=== PATIENT | male | born 1985 | race Caucasian/White ===

== ENCOUNTER 2019-11-29 12:33 | Emergency (ER) | payer BC, SELFPAY ==
[2019-11-29 12:40] VITALS: BP 132/88; PULSE 79; RESP 18; TEMP 36.7; O2SAT 98; BMI 22.6
[2019-11-29 14:22] LABS: Coronavirus 19 IgG Antibody Positive (Negative)
[2019-11-29 14:23] LABS: Coronavirus 19 IgM Antibody Positive (Negative)
--- NOTE | 2019-11-29 14:57 | HMH.EDHA ---
ED Disposition Clinical Impression: Headache Disposition: Home, Self-Care Condition on Discharge: Good Instructions: DI for Headache Additional Instructions: Your antibody test came back positive for both IgG and IgM which means you have been still an acute infection but you are developing antibodies for immunity. Please self quarantine for the next 14 days. Referrals: Provider,Referral, [Primary Care Provider] - - Critical Care Critical Care Time: No Attestation: On 11/29/19, the high probability of a clinically significant, sudden or life threatening deterioration of the following system(s) required my full and direct attention, intervention and personal management. The time I documented below is in addition to time spent performing reported procedures but includes the following listed in this critical care notation. Medical Decision Making - Medical Records Medical records reviewed: Yes: I reviewed the patient's medical records. - [place] Inquiry Pt receiving controlled substance: No Vital Signs: 11/29/19 12:40 Temperature 98.1 F Temperature Source Oral Pulse Rate [Right Radial] 79 Respiratory Rate 18 Blood Pressure [Right Arm] 132/88 Blood Pressure Mean [Right Arm] 102 Blood Pressure Source [Right Arm] Manual Cuff/ Doppler Blood Pressure Position [Right Arm] Sitting 02 Sat by Pulse Oximetry 98 Oxygen Delivery Method Room Air - Lab Data Lab results reviewed: Yes: I reviewed the patient's lab results. Lab Results 11/29/19 13:45: SARS-CoV-2 IgG Ab (Rapid) Positive A, SARS-CoV-2 IgM Ab (Rapid) Positive A Orders (Tests/Meds): ED MEDICATIONS Discontinued Medications Generic Name Dose Route Start Last Admin Trade Name Freq PRN Reason Stop Dose Admin Diphenhydramine HCl 25 mg 11/29/19 13:23 11/29/19 13:49 Benadryl 50mg/1ml Vial IM 11/29/19 13:24 Not Given ONCE ONE Diphenhydramine HCl 25 mg 11/29/19 13:34 11/29/19 13:48 Benadryl 25mg Capsule PO 11/29/19 13:35 25 mg ONCE ONE Administration Ketorolac Tromethamine 60 mg 11/29/19 13:22 11/29/19 13:44 Toradol 60mg/2ml Vial IM 11/29/19 13:23 60 mg ONCE ONE Administration Ondansetron HCl 4 mg 11/29/19 13:22 11/29/19 13:48 Zofran 4mg Odt SL 11/29/19 13:23 4 mg ONCE ONE Administration Orphenadrine Citrate 60 mg 11/29/19 13:22 11/29/19 13:48 Norflex 60mg/2ml Vial IM 11/29/19 13:23 60 mg ONCE ONE Administration Medical Decision Narrative: Patient improved after medications. Headache HPI - General Chief Complaint: Headache Stated Complaint: blur vison jerry maldonado Time Seen by Provider: 11/29/19 14:57 Mode of Arrival: Ambulatory Source of Information: Patient Limitations: No Limitations Description of Symptoms (Recalled from ER Triage Doc. by RN): PT STATES THAT HE WAS DX WITH COVID-19 APPROX 1 MONTH AGO AND ISN'T DUE TO RETEST UNTIL 12/02. PT STATES THAT FOR THE LAST WEEK HE HAS BEEN EXPERIENCING INTERMITTENT MIGRAINES AND NAUSEA - History of Present Illness MD Complaint: headache Onset (ago): hour(s) Onset description: sudden Location: right Severity: mild Severity scale (1-10): 3 Quality: aching Relieving factors: nothing Exacerbating factors: none Context: occurred at rest, other (Patient tested for COVID 2 weeks ago we ran an antibiotic test on him here today and it came back positive for IgG and IgM.) Treatments prior to arrival: none - Related Data Allergies Allergy/AdvReac Type Severity Reaction Status Date / Time No Known Allergies Allergy Verified 11/29/19 13:22 [facility] History - Hepatitis A Screen Drug use history?: No High risk sexual behaviors?: No History of sexually transmitted infection?: No Currently employed?: No Childcare worker?: No Do you have indoor plumbing?: Yes Do you have electricity?: Yes Attestation statement:: This patient has been screened for Hepatitis A risk factors. I have reviewed the patient's past medical history: Yes
[2019-11-29 15:07] VITALS: BP 130/81; PULSE 76; RESP 18; TEMP 36.7; O2SAT 97
== END 2019-11-29 15:13 | disposition home or self-care (01) ==
PROVIDERS: Emergency Provider Family Medicine
DX: R51 Headache (principal); R11.0 Nausea
CPT/HCPCS: 86328; 96372; 99281; 99282

== ENCOUNTER 2024-06-01 12:27 | Emergency (ER) | payer BC, SELFPAY ==
[2024-06-01 12:28] VITALS: BP 144/76; PULSE 100; RESP 20; TEMP 37.2; O2SAT 100; BMI 26.5
--- NOTE | 2024-06-01 12:54 | ECG_ITS ---
APPROVED REPORT Exam: Resting ECG HR:94 bpm ECG Measurements Heart Rate 94 AXES UT 173 P 43 QRSd 92 QRS 67 QT 315 T 53 QTc 367 Conclusion SINUS RHYTHM NORMAL ECG UNCONFIRMED REPORT Electronically signed by : Joel Tee, 06/02/2024 15:31:55
[2024-06-01 13:00] VITALS: BP 144/79
[2024-06-01 13:06] LABS: Coronavirus 19, PCR Not Detected (NotDetected); Influenza B, PCR Not Detected (NotDetected); Microscopic, Urine URINE MICROSCOPIC (MICROSCOPIC)
[2024-06-01 13:12] LABS: Appearance,Urine CLEAR (Clear); Bilirubin,Urine Negative (Negative); Blood, Urine Negative (Negative); Color,Urine YELLOW (Yellow); Glucose,Urine (UA) 3+ (Negative); Ketones,Urine Negative (Negative); Leukocyte Esterase,Urine Negative (Negative); Nitrate,Urine Negative (Negative); PH,Urine 6.5 (5.0-8.5); Protein,Urine TRACE (Negative)
[2024-06-01 13:13] LABS: Basophils # 0.1 K/mm3 (0-0.2); Basophils % 0.8 % (0.1-2.0); Eosinophils # 0.1 K/mm3 (0.0-0.4); Eosinophils % 0.9 % (0.1-12.0); Hematocrit 44.2 % (42.0-52.0); Hemoglobin 15.4 g/dL (14.1-18.0); Lymphocytes # 0.5 K/mm3 (0.7-4.5); Lymphocytes % 6.6 % (10-50); Mean Corpuscular HGB Conc 34.8 g/dL (31.8-35.4); Mean Corpuscular Hemoglobin 29.6 pg (27.0-31.2); Mean Corpuscular Volume 84.8 fl (80-94); Mean Platelet Volume 9.2 fl (7.4-10.4); Monocytes # 0.9 K/mm3 (0.1-1.0); Monocytes % 11.6 % (1.7-9.3); Neutrophils # 6.2 K/mm3 (1.8-7.8); Neutrophils % 79.7 % (37.0-80.0); Platelet Count 227 K/mm3 (142-424); Red Blood Count 5.21 M/mm3 (4.60-6.20); Red Cell Distribution Width 12.9 % (11.5-17.5); White Blood Count 7.8 K/mm3 (4.8-10.8)
[2024-06-01 13:20] LABS: Bacteria,Urine Trace /lpf; Squamous Epithelial Cell,Urine Occasional #/hpf (0-5); WBC,Urine Occasional #/hpf (0-3)
[2024-06-01 13:21] LABS: Albumin Level 4.5 g/dl (3.5-5.0); Chloride 98 mmol/L (98-107); Potassium 3.6 mmoL/L (3.5-5.1); Sodium 132 mmol/L (136-145)
[2024-06-01 13:24] LABS: Alanine Aminotransferase 38 U/L (12-78); Albumin/Globulin Ratio 1.5 (1.1-1.8); Alkaline Phosphatase 88 U/L (38-126); Anion Gap 9.6 mEq/L (5-15); Aspartate Amino Transferase 37 U/L (17-59); Bilirubin,Total 1.4 mg/dl (0.2-1.3); Blood Urea Nitrogen 15 mg/dl (9-20); Calcium 9.1 mg/dl (8.4-10.2); Carbon Dioxide 28 mmol/L (22.0-30.0); Creatinine Clearance Estimated 89 mL/min (50-200); Estimated Glomerular Filt Rate 76 ml/min (>60); GFR (African American) 92 ML/MIN (>60); Glucose 170 mg/dl (74-100); Lipase 62 U/L (23-300); Total Protein,Serum 7.5 g/dl (6.3-8.2)
[2024-06-01] MEDS: 0.9 % SODIUM CHLORIDE 1000ML 1,000 ML 999 ML IV (13:26)
[2024-06-01] MEDS: ONDANSETRON 4MG/2ML VIAL 4 MG IV (13:27)
[2024-06-01 13:30] VITALS: BP 134/72
[2024-06-01 13:36] LABS: Influenza A, PCR Detected (NotDetected)
--- NOTE | 2024-06-01 13:55 | XR_ITS ---
PROCEDURE INFORMATION: Exam: XR Chest Exam date and time: 06/01/2024 1:49 PM Age: 38 years old Clinical indication: Cough and shortness of breath; Additional info: Flu, cough TECHNIQUE: Imaging protocol: Radiologic exam of the chest. Views: 2 views. COMPARISON: No relevant prior studies available. FINDINGS: Lungs: Unremarkable. No consolidation. Pleural spaces: Unremarkable. No pleural effusion. No pneumothorax. Heart/Mediastinum: Unremarkable. No cardiomegaly. Bones/joints: Unremarkable. IMPRESSION: No acute findings.
[2024-06-01] MEDS: IBUPROFEN 600 MG TABLET PO (14:05)
[2024-06-01 14:30] VITALS: BP 138/71; PULSE 89; O2SAT 97
[2024-06-01 15:08] LABS: Troponin I < 0.01 ng/ml (0.00-0.034)
[2024-06-01 15:31] VITALS: BP 135/79; PULSE 80; RESP 20; TEMP 36.8; O2SAT 98
--- NOTE | 2024-06-01 17:46 | ED_ITS ---
<Statement entered by Mauro Tee MD - 06/02/24 15:28> I was consulted by the MAG, and we discussed the complexity of the problems being addressed. I approved the treatment and management plan for this patient's care in the emergency department, thus performing a substantive portion of the medical decision making. Mauro Tee MD, ZAIRE, FACEP Discharge Plan Disposition Patient Disposition: Home, Self-Care Condition: Good Prescriptions Prescriptions: New ondansetron 4 mg tablet,disintegrating 4 mg PO Q8H PRN (Reason: nausea and vomiting) 3 Days Qty: 9 0RF Referrals Follow up/Referrals: Tesha Munguia APRN [Primary Care Provider] - See instructions Activity Restrictions/Add. Instructions Additional Instructions/Restrictions: You were seen for influenza A. Please drink fluids and rest. Return to the ER if you are unable to hold anything down or have change in mental status. Follow up with your PCP tomorrow. Clinical Impressions Clinical Impression: Influenza A Stand Alone Forms Stand Alone Forms: Work/School Release Instructions Patient Instructions: DI for Influenza -- Adult Print Language Print Language: Kittitian Discharge ED Provider: Mauro Tee General Adult HPI General Chief complaint: Nausea/Vomiting/Diarrhea Stated complaint: nausea, vomiting, passed out Time Seen by Provider: 06/01/24 12:43 Mode of Arrival: Ambulatory Source of Information: Patient and Relative Limitations: No Limitations Description of Symptoms (Recalled from ER Triage Doc. by RN): pt has been feeling sick since yesteray and began having nasuea and vomiting today and passed out in bathroom after a vomiting episode, pt denies head injury History of Present Illness HPI narrative: Patient presents with feeling unwell for the past 2 days. He has had a cough, fever, Tmax 101. He has had some nausea and vomiting this morning. While kneeling in the he did experience a syncopal episode which lasted for approximately 10 seconds. Denies any significant confusion afterwards, denies any injury. complaint: Vomiting, fever, syncope Onset (ago): day(s) (2) Radiation: non-radiation Severity: moderate Consistency: constant Relieving factors: none Exacerbating factors: none Associated symptoms: cough, fever/chills and nausea/vomiting Related Data Previous Rx's ?Medication ?Instructions ?Recorded ondansetron 4 mg disintegrating 4 mg PO Q8H PRN nausea and 06/01/24 tablet vomiting 3 days #9 tabs Allergies Allergy/AdvReac Type Severity Reaction Status Date / Time No Known Allergies Allergy Verified 11/29/19 13:22 [facility] Disclaimer: The information contained in this section may have been updated after the patient was seen, as this information can be updated by other users. Social History Smoking Status: Current every day smoker tobacco type: cigarettes alcohol intake: never current occupational status: employed Travel in the last 8 weeks: None Have you lived/traveled outside [place] in past 30 days?: No Contact w/someone who lives/traveled outside US past 30 days?: No Exposure to someone with infectious disease in past 14 days?: No Do you have a fever (greater than 100.4 F or 38 C)?: No Have you tested positive for COVID-19: No Exposed to someone with COVID-19 in past 14 days?: No Do you have a sore throat?: No Do you have a cough?: No Do you have any weakness?: No Do you have any diarrhea?: No Are you experiencing any unusual bleeding?: No Do you have any muscle aches/pain?: No Do you have any abdominal pain?: No Are you experiencing loss of taste or smell?: No Other Medical History Have you received the Flu Vaccine for this season: Yes Have you received the Pneumonia Vaccine: Yes ROS Obtained: Yes Systems reviewed as appropriate & no additional complaints except as documented Physical Exam General General appearance: alert and in no apparent distress Head Head exam: atraumatic and normocephalic Eye Eye exam: Present normal appearance and EOMI Chest Chest inspection: Present symmetric chest wall rise Respiratory Respiratory exam: Present normal lung sounds bilaterally; Absent wheezes or stridor Cardiovascular Cardiovascular exam: Present regular rate and normal rhythm; Absent systolic murmur Abdominal Exam Abdominal exam: Present soft, distention and tenderness (mild generalized tenderness ) Extremities Exam Extremities exam: Present full ROM Neurological Exam Neurological exam: Present alert and oriented X3 Psychiatric Psychiatric exam: Present normal affect and normal mood Skin Skin exam: Present warm, dry and intact Medical Decision Making Medical Records Screening: Per USPSTF and CDC recommendations, given the prevalence of disease in our region, it is our hospital?s policy to screen for HIV and viral Hepatitis for all patients aged 18 and over and those with ongoing risk factors. [place] Inquiry Pt receiving controlled substance: No Vital Signs: 06/01/24 12:28 06/01/24 13:00 06/01/24 13:30 Temperature 98.9 F Temperature Source Oral Pulse Rate Pulse Rate [Right Radial] 100 H Respiratory Rate 20 Blood Pressure 144/79 H 134/72 Blood Pressure [Right Arm] 144/76 H Blood Pressure Mean 96 88 Blood Pressure Mean [Right Arm] 98 02 Sat by Pulse Oximetry 100 Oxygen Delivery Method Room Air Room Air Room Air 06/01/24 14:30 06/01/24 15:31 Temperature 98.2 F Temperature Source Pulse Rate 89 80 Pulse Rate [Right Radial] Respiratory Rate 20 Blood Pressure 138/71 135/79 Blood Pressure [Right Arm] Blood Pressure Mean Blood Pressure Mean [Right Arm] 02 Sat by Pulse Oximetry 97 Oxygen Delivery Method Room Air Room Air Lab Data Lab Results 06/01/24 12:50: Urine Color Yellow, Urine Appearance Clear, Urine pH 6.5, Ur Specific Ronald 1.020, Urine Protein Trace, Urine Glucose (UA) 3+, Urine Ketones Negative, Urine Blood Negative, Urine Nitrate Negative, Urine Bilirubin Negative, Urine Urobilinogen 2.0, Ur Leukocyte Esterase Negative, Urine RBC None, Urine WBC Occasional, Ur Squamous Epith Cells Occasional, Urine Bacteria Trace, SARS-CoV-2 (PCR) Not detected, Influenza A Untype (PCR) Detected A, Influenza Type B (PCR) Not detected 06/01/24 13:00: WBC 7.8, RBC 5.21, Hgb 15.4, Hct 44.2, MCV 84.8, MCH 29.6, MCHC 34.8, RDW 12.9, Plt Count 227, MPV 9.2, Neut % (Auto) 79.7, Lymph % (Auto) 6.6 L , [place] % (Auto) 11.6 H, Eos % (Auto) 0.9, Baso % (Auto) 0.8, Neut # (Auto) 6.2, Lymph # (Auto) 0.5 L, [place] # (Auto) 0.9, Eos # (Auto) 0.1, Baso # (Auto) 0.1, S odium 132 L, Potassium 3.6, Chloride 98, Carbon Dioxide 28, Anion Gap 9.6, BUN 15, Creatinine 1.10, Estimated Creat Clear 89, Estimated GFR 76, Est GFR ( Amer) 92, Glucose 170 H, Hemoglobin A1c 5.0, Calcium 9.1, Magnesium 2.0, Total Bilirubin 1.4 H, AST 37, ALT 38, Alkaline Phosphatase 88, Troponin I < 0.01, Total Protein 7.5, Albumin 4.5, Globulin 3.0, Albumin/Globulin Ratio 1.5, Lipase 62 06/01/24 13:00 06/01/24 13:00 Orders (Tests/Meds): ED MEDICATIONS Discontinued Medications Generic Name Dose Route Start Last Admin Trade Name Freq PRN Reason Stop Dose Admin Sodium Chloride 1,000 mls @ 999 mls/hr 06/01/24 12:50 06/01/24 13:26 Sod Chlor 0.9% 1000ml Bag IV 06/01/24 13:50 999 mls/hr .Q1H1M ONE Administration Ibuprofen 600 mg 06/01/24 13:55 06/01/24 14:05 Ibuprofen 600 Mg Tablet PO 06/01/24 13:56 600 mg ONCE ONE Administration Ondansetron HCl 4 mg 06/01/24 12:53 06/01/24 13:27 Ondansetron 4mg/2ml Vial IV 06/01/24 12:54 4 mg ONCE ONE Administration ORDERS Category Date Time Status Chest XR 2 view (NOT portable) [XR chest 2V] Stat Exams 06/01/24 13:55 Completed Complete Blood Count Auto Diff Stat Lab 06/01/24 13:00 Completed Comprehensive Metabolic Panel Stat Lab 06/01/24 13:00 Completed Hemoglobin A1C Stat Lab 06/01/24 13:00 Completed Lipase Stat Lab 06/01/24 13:00 Completed Magnesium Stat Lab 06/01/24 13:00 Completed Rapid PCR Covid and Flu A/B Stat Lab 06/01/24 12:50 Completed Troponin I Stat Lab 06/01/24 13:00 Completed Urinalysis and Microscopic Stat Lab 06/01/24 12:50 Completed ECG Request Stat Y 06/01/24 12:50 Ordered Medical Decision Narrative: In summary patient is a 38-year-old who presents the emergency department for evaluation of fever, vomiting, syncope. Patient is hemodynamically stable upon arrival, afebrile. Mild generalized abdominal tenderness. Differential diagnosis includes viral syndrome including influenza, dehydration, pneumonia, arrhythmia. Initial workup will be conducted with labs, EKG, chest x-ray, troponin. Initial inventions include IV fluid bolus, Zofran, ibuprofen. Initial workup reviewed by me slight hyponatremi, influenza A positive. Upon repeat evaluation patient had improvement of symptoms . Given this patient is appropriate for discharge at this time with prescription for Zofran. Follow-up if not improved. Critical Care Critical Care Time Critical Care Time: No
== END 2024-06-01 15:32 | disposition home or self-care (01) ==
PROVIDERS: Physician Assistant; Emergency Provider Student in an Organized Health Care Education/Training Program; PCP Nurse Practitioner Family
DX: J10.1 Influenza due to other identified influenza virus with other respiratory manifestations (principal); R11.2 Nausea with vomiting, unspecified; R55 Syncope and collapse; R05.9 Cough, unspecified; R50.9 Fever, unspecified; Z72.0 Tobacco use
CPT/HCPCS: 71046; 80053; 81001; 83036; 83690; 83735; 84484; 85025; 87636; 93005; 96361; 96374; 99284; J2405; J7030

== ENCOUNTER 2024-08-20 06:34 | Outpatient (CLI) | payer BC, SELFPAY ==
--- NOTE | 2024-08-20 06:54 | CT_ITS ---
FINAL REPORT TECHNIQUE: Thin section axial CT with coronal reconstruction without IV contrast This study was performed with techniques to keep radiation doses as low as reasonably achievable, (ALARA). Individualized dose reduction techniques using automated exposure control or adjustment of mA and/or kV according to the patient''s size were employed. CLINICAL HISTORY: Frequent nose bleeds COMPARISON: None FINDINGS: CT SINUS: CT examination of the sinuses demonstrates mucosal thickening in the maxillary and ethmoid sinuses bilaterally. This mucosal thickening measures up to 4 mm in size. There is an air-fluid level in the right maxillary sinus consistent with acute sinusitis. There is a mucous retention cyst measuring 18 mm in size in the inferior left maxillary sinus. There is partial obstruction of the ostiomeatal units bilaterally, greater on the right than on the left, that may be secondary to mucosal thickening and/or mucous retention cysts. There is septal deviation to the right of 5 mm. No obvious nasal cavity masses identified. IMPRESSION: Acute right maxillary sinusitis. Chronic mucosal thickening of the maxillary and ethmoid sinuses bilaterally. Partial obstruction of the ostiomeatal units bilaterally, greater on the right than on the left. Reviewed, Interpreted and Dictated by Damir Easley MD Transcribed by Micaela Narayan Authenticated and [facility]
== END 2024-08-20 23:59 | disposition home or self-care (01) ==
PROVIDERS: PCP Nurse Practitioner Family; Visit Provider Nurse Practitioner
DX: R04.0 Epistaxis (principal)
CPT/HCPCS: 70486

== ENCOUNTER 2025-02-18 08:44 | Emergency (ER) | payer BC, SELFPAY ==
[2025-02-18 08:44] VITALS: BP 148/94; PULSE 68; RESP 16; TEMP 36.8; O2SAT 100; BMI 21.9
[2025-02-18 08:47] VITALS: BP 148/94; O2SAT 98
--- NOTE | 2025-02-18 08:55 | CT_ITS ---
FINAL REPORT TECHNIQUE: IV contrast enhanced exam This study was performed with techniques to keep radiation doses as low as reasonably achievable, (ALARA). Individualized dose reduction techniques using automated exposure control or adjustment of mA and/or kV according to the patient''s size were employed. CLINICAL HISTORY: RLQ abdominal pain, r/o appendicitis COMPARISON: none FINDINGS: Abdomen: No acute density is seen within the lung bases. The gallbladder is unremarkable. Solid abdominal organs are unremarkable. No bowel obstruction is present. There is no free air. No fluid collection is seen. There is no adenopathy. Pelvis: No evidence of appendicitis. Pelvic bowel loops are unremarkable. The urinary bladder and prostate are normal. There is no free fluid. No pelvic mass is seen. IMPRESSION: No findings to account for symptoms. Reviewed, Interpreted and Dictated by Damir Easley MD Transcribed by Gela Wilhelm Authenticated and [facility]
--- NOTE | 2025-02-18 08:56 | [facility].EDGENADL ---
Discharge Plan Disposition Patient Disposition: Home, Self-Care Prescriptions Prescriptions: No Action omeprazole 40 mg capsule,delayed release(DR/EC) PO Patient Comments: TAKE ONE CAPSULE BY MOUTH EVERY DAY bupropion HCl 100 mg tablet PO Patient Comments: TAKE ONE TABLET BY MOUTH TWICE DAILY mupirocin 2 % ointment 1 applic topical BID Qty: 15 1RF ondansetron 4 mg tablet,disintegrating 4 mg PO Q8H PRN (Reason: nausea and vomiting) 3 Days Qty: 9 0RF Referrals Follow up/Referrals: Tesha Munguia APRN [Primary Care Provider, Medical] - See instructions Clinical Impressions Clinical Impression: Right lower quadrant abdominal pain Stand Alone Forms Stand Alone Forms: Work/School Release Instructions Patient Instructions: Acute Abdominal Pain Print Language Print Language: Peruvian Discharge ED Provider: Libia Downs Adult HPI General Chief complaint: Dizziness Stated complaint: Right side pain, dizziness Time Seen by Provider: 02/18/25 08:50 Mode of Arrival: Ambulatory Source of Information: Patient and Significant Other Description of Symptoms (Recalled from ER Triage Doc. by RN): Patient presents to ED for dizziness that started this morning after not feeling good for the last couple days. Patient reports nonradiating right flank pain as well. Denies n/v/d. History of Present Illness HPI narrative: This is a 39-year-old male who denies any significant past medical history presenting the emergency department with 3 days of generalized malaise and right lower quadrant abdominal pain. He describes some increasing right sided pain that has now migrated to the right lower quadrant. Denies any recent abdominal trauma. Denies any associated urinary symptoms, constipation, vomiting, or diarrhea. No prior surgeries. Related Data Home Medications ?Medication ?Instructions ?Recorded ?Confirmed bupropion HCl 100 mg tablet mg PO 07/28/24 07/28/24 omeprazole 40 mg capsule,delayed mg PO 07/28/24 07/28/24 release Previous Rx's ?Medication ?Instructions ?Recorded ondansetron 4 mg disintegrating 4 mg PO Q8H PRN nausea and 06/01/24 tablet vomiting 3 days #9 tabs mupirocin 2 % topical ointment 1 applic topical BID #15 grams 07/28/24 Allergies Allergy/AdvReac Type Severity Reaction Status Date / Time No Known Allergies Allergy Verified 02/18/25 09:00 [facility] Disclaimer: The information contained in this section may have been updated after the patient was seen, as this information can be updated by other users. Social History Smoking Status: Current some day smoker tobacco type: cigarettes alcohol intake: never current occupational status: employed Travel in the last 8 weeks?: None Have you lived/traveled outside [place] in past 30 days?: No Contact w/someone who lives/traveled outside [place] past 30 days?: No Exposure to someone with infectious disease in past 14 days?: No Do you have a fever (greater than 100.4 F or 38 C)?: No Have you tested positive for COVID-19?: No Exposed to someone with COVID-19 in past 14 days?: No Do you have a sore throat?: No Do you have a cough?: No Do you have any weakness?: No Do you have any diarrhea?: No Are you experiencing any unusual bleeding?: No Do you have any muscle aches/pain?: No Do you have any abdominal pain?: No Are you experiencing loss of taste or smell?: No Other Medical History Have you received the Flu Vaccine for this season: Yes Have you received the Pneumonia Vaccine: No ROS Obtained: Yes All systems reviewed & no additional complaints except as documented Physical Exam General General appearance: alert and in no apparent distress Head Head exam: atraumatic Eye Eye exam: Present normal appearance, PERRL and EOMI ENT ENT exam: Present mucous membranes moist Neck Neck exam: Present normal inspection and full ROM; Absent tenderness Chest Chest inspection: Present symmetric chest wall rise; Absent tenderness Respiratory Respiratory exam: Absent respiratory distress, wheezes or accessory muscle use Cardiovascular Cardiovascular exam: Present regular rate and normal rhythm Abdominal Exam Abdominal exam: Present soft and tenderness (Mild periumbilical, suprapubic, and right lower quadrant tenderness); Absent guarding or rigidity Extremities Exam Extremities exam: Present full ROM; Absent tenderness Neurological Exam Neurological exam: Present alert and oriented X3 Psychiatric Psychiatric exam: Present normal affect Skin Skin exam: Present warm and dry Medical Decision Making Medical Records Screening: Per USPSTF and CDC recommendations, given the prevalence of disease in our region, it is our hospital?s policy to screen for HIV and viral Hepatitis for all patients aged 18 and over and those with ongoing risk factors. [place] Inquiry Pt receiving controlled substance: No [place] was queried for this patient: No Vital Signs: 02/18/25 08:44 02/18/25 08:44 02/18/25 08:47 Temperature 98.2 F 98.2 F Temperature Source Oral Pulse Rate 68 Pulse Rate [Right] 68 Respiratory Rate 16 16 Blood Pressure 148/94 H 148/94 H Blood Pressure [Right Arm] 148/94 H Blood Pressure Mean [Right Arm] 112 Blood Pressure Source Blood Pressure Position 02 Sat by Pulse Oximetry 100 100 98 Oxygen Delivery Method Room Air 02/18/25 09:00 02/18/25 09:32 02/18/25 11:38 Temperature 98.4 F Temperature Source Oral Pulse Rate 72 64 48 L Pulse Rate [Right] Respiratory Rate 16 Blood Pressure 133/79 138/84 126/80 Blood Pressure [Right Arm] Blood Pressure Mean [Right Arm] Blood Pressure Source Automatic Cuff Blood Pressure Position Sitting 02 Sat by Pulse Oximetry 99 100 Oxygen Delivery Method Room Air Room Air Room Air Lab Data Lab results reviewed: Yes I reviewed the patient's lab results. Lab Results 02/18/25 09:12: WBC 6.3, RBC 5.30, Hgb 15.8, Hct 44.8, MCV 84.5, MCH 29.8, MCHC 35.3, RDW 12.9, Plt Count 310, MPV 9.0, Neut % (Auto) 54.9, Lymph % (Auto) 28.5, Rab[place] % (Auto) 10.9 H, Eos % (Auto) 4.5, Baso % (Auto) 1.0, Neut # (Auto) 3.4, Lymph # (Auto) 1.8, Rab[place] # (Auto) 0.7, Eos # (Auto) 0.3, Baso # (Auto) 0.1, Sodium 138, Potassium 4.4, Chloride 103, Carbon Dioxide 28, Anion Gap 11.4, BUN 19, Creatinine 0.90, Estimated Creat Clear 101, Estimated GFR 95, Est GFR ( Amer) 115, Glucose 88, Calcium 9.5, Total Bilirubin 1.1, AST 32, ALT 22, Alkaline Phosphatase 75, Total Protein 7.8, Albumin 4.7, Globulin 3.1, Albumin/Globulin Ratio 1.5, Lipase 127, Urine Color Yellow, Urine Appearance Clear, Urine pH 7.0, Ur Specific [place] 1.015, Urine Protein Negative, Urine Glucose (UA) 2+, Urine Ketones Negative, Urine Blood Negative, Urine Nitrate Negative, Urine Bilirubin Negative, Urine Urobilinogen 1.0, Ur Leukocyte Esterase Negative, Urine RBC None, Urine WBC Occasional, Ur Squamous Epith Cells None, Urine Bacteria None 02/18/25 09:12 02/18/25 09:12 Orders (Tests/Meds): ED MEDICATIONS Discontinued Medications Generic Name Dose Route Start Last Admin Trade Name Carlos PRN Reason Stop Dose Admin Acetaminophen 1,000 mg 02/18/25 08:54 02/18/25 09:16 Acetaminophen 1,000mg/100ml Vial IV 02/18/25 08:55 1,000 mg ONCE ONE Administration Lactated Ringer's 1,000 mls @ 999 mls/hr 02/18/25 08:54 02/18/25 09:16 Lactated Ringer's 1000 Ml Bag IV 02/18/25 09:54 999 mls/hr .Q1H1M ONE Administration Iopamidol 75 ml 02/18/25 09:58 02/18/25 09:59 Iopamidol-370 (76%);100ml Bottle IV 02/18/25 09:59 75 ml ONCE ONE Administration Sodium Chloride 10 ml 02/18/25 09:58 02/18/25 10:01 0.9 % Sodium Chloride 50 Ml Vial IV 02/18/25 09:59 Not Given ONCE ONE ORDERS Category Date Time Status CT abdomen pelvis w con Stat Cat Scan 02/18/25 08:55 Completed CBC w/Auto Diff [Complete Blood Count Auto Diff] Stat Lab 02/18/25 09:12 Completed CMP [Comprehensive Metabolic Panel] Stat Lab 02/18/25 09:12 Completed Lipase Stat Lab 02/18/25 09:12 Completed UA [Urinalysis and Microscopic] Stat Lab 02/18/25 09:12 Completed Medical Decision Narrative: 39-year-old male presenting the emergency department with 3 days of right lower quadrant pain and some associated dizziness. Differential diagnosis includes but is not limited to: Viral syndrome, gastroenteritis, constipation, diverticulitis, acute appendicitis, renal stone On my initial assessment, the patient is hemodynamically stable in no acute distress. His exam is notable for periumbilical, suprapubic, and right lower quadrant abdominal tenderness. Considering the location of his abdominal pain, a CT of the abdomen and pelvis is indicated in order to evaluate for acute appendicitis. CBC and CMP are unremarkable. UA without acute infectious process. CT abdomen and pelvis with no acute findings. No sign of appendicitis. On my reassessment, the patient reports some improvement in his symptoms. I discussed laboratory and imaging results. I recommended discharge home and explained that there is very low likelihood of any acute process at this time. I did inform him that CT of the abdomen and pelvis cannot definitively rule out early appendicitis, and so I encouraged him to return to the emergency department should his symptoms worsen. Critical Care Critical Care Time Critical Care Time: No
[2025-02-18 09:00] VITALS: BP 133/79; PULSE 72; O2SAT 99
[2025-02-18] MEDS: ACETAMINOPHEN 1,000MG/100ML VIAL 1000 MG IV (09:16)
[2025-02-18] MEDS: LACTATED RINGERS 1000ML 1,000 ML 999 ML IV (09:16)
[2025-02-18 09:17] LABS: Microscopic, Urine URINE MICROSCOPIC (MICROSCOPIC)
[2025-02-18 09:22] LABS: Hematocrit 44.8 % (42.0-52.0); Hemoglobin 15.8 g/dL (14.1-18.0); Immature Granulocytes % 0.2 %; Mean Corpuscular HGB Conc 35.3 g/dL (31.8-35.4); Mean Corpuscular Hemoglobin 29.8 pg (27.0-31.2); Mean Corpuscular Volume 84.5 fl (80-94); Nucleated Red Blood Cells % 0 %; Platelet Count 310 K/mm3 (142-424); Red Blood Count 5.30 M/mm3 (4.60-6.20); Red Cell Distribution Width-SD 39.5 fL; White Blood Count 6.3 K/mm3 (4.8-10.8)
[2025-02-18 09:32] VITALS: BP 138/84; PULSE 64; O2SAT 100
[2025-02-18 09:35] LABS: Alanine Aminotransferase 22 U/L (12-78); Albumin Level 4.7 g/dl (3.5-5.0); Albumin/Globulin Ratio 1.5 (1.1-1.8); Alkaline Phosphatase 75 U/L (38-126); Anion Gap 11.4 mEq/L (5-15); Aspartate Amino Transferase 32 U/L (17-59); Bilirubin,Total 1.1 mg/dl (0.2-1.3); Blood Urea Nitrogen 19 mg/dl (9-20); Calcium 9.5 mg/dl (8.4-10.2); Carbon Dioxide 28 mmol/L (22.0-30.0); Chloride 103 mmol/L (98-107); Creatinine Clearance Estimated 101 mL/min (50-200); Creatinine,Serum 0.90 mg/dl (0.66-1.25); Estimated Glomerular Filt Rate 95 ml/min (>60); GFR (African American) 115 ML/MIN (>60); Globulin 3.1 g/dL (1.3-3.2); Glucose 88 mg/dl (74-100); Lipase 127 U/L (23-300); Potassium 4.4 mmoL/L (3.5-5.1); Sodium 138 mmol/L (136-145); Total Protein,Serum 7.8 g/dl (6.3-8.2)
[2025-02-18 09:51] LABS: Bilirubin,Urine Negative (Negative); Color,Urine YELLOW (Yellow); Glucose,Urine (UA) 2+ (Negative); Ketones,Urine Negative (Negative); Leukocyte Esterase,Urine Negative (Negative); PH,Urine 7.0 (5.0-8.5); Protein,Urine Negative (Negative); Specific Gravity, Urine 1.015 (1.005-1.030); Urobilinogen,Urine 1.0 EU/dl (0.2)
[2025-02-18] MEDS: IOPAMIDOL-370 (76%);100ML BOTTLE 75 ML IV (09:59)
[2025-02-18 10:05] LABS: WBC,Urine Occasional #/hpf (0-3)
[2025-02-18 11:38] VITALS: BP 126/80; PULSE 48; RESP 16; TEMP 36.9; O2SAT 99
== END 2025-02-18 11:42 | disposition home or self-care (01) ==
PROVIDERS: Emergency Provider Student in an Organized Health Care Education/Training Program; PCP Nurse Practitioner Family
DX: R10.31 Right lower quadrant pain (principal); R53.81 Other malaise; F17.210 Nicotine dependence, cigarettes, uncomplicated
CPT/HCPCS: 74177; 80053; 81001; 83690; 85025; 96361; 96374; 99284; J0131; J7120; Q9967